=== PATIENT | female | born 1995 | race Caucasian/White ===

== ENCOUNTER 2024-02-06 16:04 | Inpatient (IN) ==
[2024-02-06] MEDS ORDERED: Buffered Lidocaine 1% SYRIN 1 ml INTRADERM ONE (17:03)
[2024-02-06] MEDS: Dinoprostone 10 MG VAG.SUPP VAGINAL ONE (17:53)
[2024-02-06 18:31] LABS: Urine Benzodiazepine Screen None Detected (None Detect); Urine Cannabinoids Screen None Detected (None Detect); Urine Opiates Screen None Detected (None Detect)
[2024-02-07] MEDS ORDERED: Morphine 2 MG/ML SYRINGE IM ONE (01:52)
[2024-02-07] MEDS: Morphine 2 MG/ML SYRINGE IV ONE (02:22)
[2024-02-07] MEDS: Prochlorperazine 5 mg/ml 2 ml VIAL (10 mg) IV PRN (02:23)
[2024-02-07 02:27] LABS: Hematocrit 37.6 % (35-45); Hemoglobin 12.5 g/dL (11.5-14.3); Mean Corpuscular Hemoglobin 28.6 pg (27-33); Mean Corpuscular Hgb Conc 33.3 g/dL (31-36); Red Blood Count 4.38 10^6/uL (3.63-4.92); Red Cell Distribution Width 14.4 % (12-17)
[2024-02-07 03:03] LABS: ABS Basophils 0.1 10^3/uL (0.0-0.1); ABS Eosinophils 0.3 10^3/uL (0.0-0.5); ABS Monocytes 1.2 10^3/uL (0.0-0.9); ABS Neutrophils 10.5 10^3/uL (1.5-7.6); ABS Nucleated RBC 0.01 10^3/ul; Eosinophil % 1.9 %; Lymphocyte % 20.1 %; Mean Platelet Volume 11.5 fL (7.5-11.2); Nucleated Red Blood Cells % 0.1 %/100WBC (0.0-0.8); Platelet Count 113 10^3/uL (150-450)
[2024-02-07] MEDS: Ondansetron 4 mg VIAL 2 MG/ML 2 ml VIAL IV PRN (05:16)
[2024-02-07] MEDS: Lactated Ringers 1000 ml BAG 1,000 ML IV ONE (08:20)
[2024-02-07] MEDS: Lactated Ringers 1000 ml BAG 1,000 ML IV SCH ×2 (08:48→20:15)
[2024-02-07] MEDS: Lidocaine 1.5% EPI 1:200,000 30 ML SDV ONE (08:55)
[2024-02-07 09:00] LABS: Hematocrit 37.8 % (35-45); Hemoglobin 12.2 g/dL (11.5-14.3); Mean Corpuscular Hemoglobin 27.7 pg (27-33); Mean Corpuscular Hgb Conc 32.3 g/dL (31-36); Mean Corpuscular Volume 85.8 fL (80-97); Mean Platelet Volume 12.1 fL (7.5-11.2); Platelet Count 115 10^3/uL (150-450); Red Blood Count 4.41 10^6/uL (3.63-4.92); Red Cell Distribution Width 14.1 % (12-17); White Blood Count 20.2 10^3/uL (3.8-11.8)
[2024-02-07 09:12] LABS: Albumin 3.7 g/dL (3.2-5.2); Albumin/Globulin Ratio 1.3 (1-3); Calcium 8.9 mg/dL (8.6-10.3); Creatinine, Serum 0.79 mg/dL (0.51-0.95); Globulin 2.9 g/dL (2-4); Potassium 4.2 mmol/L (3.5-5.0); Total Bilirubin 0.4 mg/dL (0.2-1.0); Total Protein 6.6 g/dL (6.4-8.9); eGFR CKD-EPI 103.1 (>60)
[2024-02-07] MEDS: OBEPIDURAL (200 ML) 200 ML EPIDURAL ONE (09:16)
[2024-02-07] MEDS ORDERED: Lactated Ringers 1000 ml BAG 1,000 ML IV ONE (09:28)
[2024-02-07] MEDS ORDERED: Phenylephrine 40 mcg/mL 10mL (400mcg) SYRINGE IV PUSH PRN ×2 (09:28)
[2024-02-07] MEDS ORDERED: Sodium Citrate/Citric Acid LIQ 15 ML UDC PO PRN (09:28)
[2024-02-07] MEDS: Oxytocin in LR 20,000 MILLI.UNIT/1,000 ML BAG IV SCH (14:06)
[2024-02-07] MEDS ORDERED: Glycerin ADULT 2.4 gm SUPP PR PRN (21:39)
[2024-02-07] MEDS ORDERED: Lactated Ringers 1000 ml BAG 1,000 ML IV SCH (22:00)
[2024-02-07] MEDS: Lidocaine 1% VIAL 10 MG/ML 30 ML VIAL INJ PRN (22:04)
[2024-02-08] MEDS: Oxytocin in LR 20,000 MILLI.UNIT/1,000 ML BAG IV SCH (01:25)
[2024-02-08] MEDS: OBEPIDURAL (200 ML) 200 ML EPIDURAL SCH (01:25)
[2024-02-08] MEDS: Dibucaine 1% OINT 28.35 GM TUBE PR PRN (03:07)
[2024-02-08] MEDS: Witch Hazel PAD JAR TOPICAL PRN (03:07)
[2024-02-08 06:24] LABS: Hematocrit 31.9 % (35-45); Hemoglobin 10.4 g/dL (11.5-14.3); Mean Corpuscular Hgb Conc 32.7 g/dL (31-36); Mean Corpuscular Volume 85.6 fL (80-97); Red Blood Count 3.73 10^6/uL (3.63-4.92); Red Cell Distribution Width 14.1 % (12-17); White Blood Count 25.7 10^3/uL (3.8-11.8)
[2024-02-08 07:37] LABS: ABS Lymphocytes 1.8 10^3/uL (1.0-4.8); ABS Monocytes 1.9 10^3/uL (0.0-0.9); ABS Nucleated RBC 0.02 10^3/ul; Eosinophil % 0.1 %; Nucleated Red Blood Cells % 0.1 %/100WBC (0.0-0.8); RBC Morphology Normal (Normal)
[2024-02-08 07:38] LABS: Mean Platelet Volume 11.3 fL (7.5-11.2); Platelet Count 95 10^3/uL (150-450)
[2024-02-09 08:33] VITALS: BP 128/81
== END 2024-02-09 12:18 | disposition home or self-care (01) | DRG 806 ==
LOC: MCHOBOUT 16:04 → MCHOB 16:54
PROVIDERS: ADMIT Obstetrics & Gynecology; ATTEND Obstetrics & Gynecology